=== PATIENT | male | born 1950 | race Caucasian/White ===

== ENCOUNTER 2018-06-02 04:30 | Inpatient (IN) | payer MEDICARE ==
[~2018-06-02] VITALS: Ht 170.2 cm; Wt 74.4 kg
[2018-06-02] MEDS ORDERED: MAG HYDROX/AL HYDROX/SIMETH 30 ML UDC PO PRN (05:00)
[2018-06-02] MEDS ORDERED: LORAZEPAM 0.5 MG TABLET PO PRN (05:00)
[2018-06-02] MEDS ORDERED: ZOLPIDEM TARTRATE 5 MG TABLET PO PRN (05:00)
[2018-06-02] MEDS ORDERED: MAGNESIUM HYDROXIDE 30 ML UDC PO PRN (05:00)
[2018-06-02] MEDS ORDERED: ACETAMINOPHEN 325 MG TABLET PO PRN (05:00)
--- NOTE | 2018-06-02 05:37 | NUR ---
ADMISSION NOTE: ADMITTED DIRECTLY FROM [facility] VIA GURNEY ACCOMPANIED BY 2 MALE PARAMEDICS. ADMITTED ON 5150 HOLD FOR GD, PATIENT UNABLE TO FORM PLAN FOR SELF CARE DUE TO MENTAL ILLNESS. HE WAS FOUND BY BYSTANDERS WALKING AROUND [employer] AFTER TAKING A BUS FROM [place], HE DOES NOT KNOW WHY HE IS IN THE HOSPITAL. STATED THAT HE IS FROM [place], LIVES WITH HIS 2 BROTHERS, TOOK ALL HIS MONEY FROM THE BANK AND TOOK THE BUS GOING TO [email or web address] PLACED PATIENT COMFORTABLY IN BED. NO ACUTE RESPIRATORY DISTRESS NOTED. 137/61, 98.1, 19, 58, 97% ON ROOM AIR. RESPIRATION EVEN, BREATHING PATTERN NON-LABORED. BELONGINGS WERE INVENTORIED AND CHECKED FOR CONTRABAND. PATIENT IS UNDER THE PSYCHIATRIC CARE OF DR. BILLY AND MEDICAL CARE BY DR. OSBORNE. PATIENT IS CALM, COMFORTABLE, COOPERATIVE, ALERT, ORIENTED X2.PATIENT HAS NO REGULAR MEDICATIONS. SKIN ASSESSMENT DONE, NOTED LEFT A ND RIGHT FOOT SWELLING AND REDNESS, DISCOLORATION RIGHT AND LEFT ARM, SCABS RIGHT KNEE. PHOTOS TAKEN. WOUND CONSULT ORDERED. MRSA SCREEN CONE. PATIENT IS A FULL CODE. BED LOCKED AND PLACED ON LOWEST POSITION. WILL CONTINUE TO MONITOR Q 15 MINS. TO MAINTAIN SAFETY. WILL NOTIFY BROTHER ABOUT ADMISSION TO THE UNIT.
[2018-06-02] MEDS ORDERED: CITA20TA16 (07:18)
[2018-06-02] MEDS ORDERED: GLIM2TAB2 PO (07:18)
[2018-06-02] MEDS ORDERED: PRAV20TA4 PO (07:18)
[2018-06-02] MEDS ORDERED: IRBE150T28 PO (07:18)
[2018-06-02] MEDS ORDERED: PALI117D (07:18)
[2018-06-02] MEDS ORDERED: AMLO5TAB7 PO (07:18)
[2018-06-02] MEDS ORDERED: ASEN5TAB7 SL (07:18)
[2018-06-02] MEDS ORDERED: METF-440 PO (07:18)
[2018-06-02] MEDS ORDERED: OXYB5TAB11 PO (07:18)
[2018-06-02] MEDS ORDERED: MIRT15TA7 (07:18)
[2018-06-02] MEDS ORDERED: PALI234D IM (07:32)
[2018-06-02] MEDS ORDERED: CLIN300C11 PO (07:55)
[2018-06-02 08:00] VITALS: BP 121/81
[2018-06-02] MEDS: AMLODIPINE BESYLATE 5 MG TABLET PO SCH (09:45)
[2018-06-02] MEDS ORDERED: IRBESARTAN (150MG) 150 MG TABLET PO SCH (10:00)
--- NOTE | 2018-06-02 12:06 | NUR ---
GPS/RN PT REFUSED BP MEDS (OFFERED X3) AND TO SIGN CONSENT FOR PSYCH MEDS.
[2018-06-02] MEDS: GLIMEPIRIDE 1 MG TABLET PO SCH (12:14)
[2018-06-02 16:00] VITALS: BP 129/65
[2018-06-02] MEDS: OXYBUTYNIN CHLORIDE 5 MG TABLET PO SCH (17:17)
[2018-06-02] MEDS: METFORMIN 500 MG TABLET PO SCH (17:17)
[2018-06-02] MEDS: ATORVASTATIN 10 MG TABLET PO SCH (18:00)
[2018-06-02 20:00] VITALS: BP 135/63
[2018-06-02] MEDS: MIRTAZAPINE 15 MG TABLET PO SCH (22:09)
[2018-06-03] MEDS ORDERED: VANCOMYCIN 1 GM in IV D5W 250 ML IV ONE (00:30)
--- NOTE | 2018-06-03 00:30 | NUR ---
GPS/RN-OBTAINED AN ORDER FROM JAQUELINE OSBORNE OF VANCOMYCIN IV FOR BLE CELLULITIS PHARMACY TO DOSE.STARTED PERIPHERAL LINE ON PTS.LEFT HAND,TOLERATED PROCEDURE WELL.VANCOMYCIN 1GM. IV ADMINISTERED ORDERED.
[2018-06-03] MEDS ORDERED: VANCOMYCIN 1 GM VIAL ONE (00:38)
[2018-06-03 08:00] VITALS: BP 145/71
[2018-06-03] MEDS: CITALOPRAM HYDROBROMIDE 20 MG TABLET PO SCH (09:08)
[2018-06-03] MEDS: METFORMIN 500 MG TABLET PO SCH ×2 (09:08→16:35)
[2018-06-03] MEDS: GLIMEPIRIDE 1 MG TABLET PO SCH (09:08)
[2018-06-03] MEDS: LOSARTAN POTASSIUM 25 MG TABLET PO SCH (09:08)
[2018-06-03] MEDS: OXYBUTYNIN CHLORIDE 5 MG TABLET PO SCH ×2 (09:31→16:37)
[2018-06-03] MEDS: AMLODIPINE BESYLATE 5 MG TABLET PO SCH (09:31)
[2018-06-03] MEDS: Z GUARD REMEDY 2 OZ OINT TP SCH (14:33)
[2018-06-03 16:00] VITALS: BP 112/57
[2018-06-03] MEDS: ATORVASTATIN 10 MG TABLET PO SCH (16:35)
[2018-06-03 19:41] VITALS: BP 112/65
[2018-06-03] MEDS: MIRTAZAPINE 15 MG TABLET PO SCH (21:35)
[2018-06-04 08:24] VITALS: BP 123/73
[2018-06-04] MEDS: GLIMEPIRIDE 1 MG TABLET PO SCH (09:01)
[2018-06-04] MEDS: AMLODIPINE BESYLATE 5 MG TABLET PO SCH (09:01)
[2018-06-04] MEDS: LOSARTAN POTASSIUM 25 MG TABLET PO SCH (09:01)
[2018-06-04] MEDS: METFORMIN 500 MG TABLET PO SCH ×2 (09:01→17:14)
[2018-06-04] MEDS: Z GUARD REMEDY 2 OZ OINT TP SCH (09:02)
[2018-06-04] MEDS: CITALOPRAM HYDROBROMIDE 20 MG TABLET PO SCH (09:02)
[2018-06-04] MEDS: OXYBUTYNIN CHLORIDE 5 MG TABLET PO SCH ×2 (09:02→17:15)
--- NOTE | 2018-06-04 10:09 | NUR ---
WOUND CARE CONSULT: PT PRESENTS WITH LEFT FOOT DISCOLORED AREAS AND WOUNDS, WELL LONG CURLING NAILS TO BILATERAL TOES, PRESENT ON ADMISSION. RASH NOTED TO PERINEUM, GROIN AREAS, PRESENT ON ADMISSION. RECOMMEND DPM CONSULT. RECOMMENDATIONS MADE FOR CARE OF RASH. DISCUSSED WITH NURSING STAFF. WILL SEE PRN. PANDA IN AGREEMENT WITH PLAN OF CARE. Addendum: 06/04/18 at 1011 by MARIA ALEJANDRA PABLO WNDNU Amended: Links added.
--- NOTE | 2018-06-04 13:05 | NUR ---
INITIAL DISCHARGE PLAN: Per pts sister Angeli [phone] pt will return home to [facility] [address] [address]. Pts sister Angeli will transport pt home when stable for discharge. SW will help form a safe and proper discharge in collaboration with .
[2018-06-04 16:00] VITALS: BP 121/69
[2018-06-04] MEDS: CLOTRIMAZOLE 1% 15 GM TUBE TP SCH (17:14)
[2018-06-04] MEDS: ATORVASTATIN 10 MG TABLET PO SCH (17:15)
[2018-06-04 19:32] VITALS: BP 124/68
[2018-06-04] MEDS: MIRTAZAPINE 15 MG TABLET PO SCH (21:06)
[2018-06-05 08:00] VITALS: BP 127/61
[2018-06-05] MEDS: LOSARTAN POTASSIUM 25 MG TABLET PO SCH (08:25)
[2018-06-05] MEDS: OXYBUTYNIN CHLORIDE 5 MG TABLET PO SCH ×2 (08:25→17:11)
[2018-06-05] MEDS: CITALOPRAM HYDROBROMIDE 20 MG TABLET PO SCH (08:25)
[2018-06-05] MEDS: METFORMIN 500 MG TABLET PO SCH ×2 (08:26→17:11)
[2018-06-05] MEDS: GLIMEPIRIDE 1 MG TABLET PO SCH (08:26)
[2018-06-05] MEDS: AMLODIPINE BESYLATE 5 MG TABLET PO SCH (08:26)
[2018-06-05] MEDS: Z GUARD REMEDY 2 OZ OINT TP SCH (08:28)
[2018-06-05] MEDS: CLOTRIMAZOLE 1% 15 GM TUBE TP SCH ×2 (08:28→17:11)
[2018-06-05 16:00] VITALS: BP 105/60
[2018-06-05] MEDS: ATORVASTATIN 10 MG TABLET PO SCH (17:11)
[2018-06-05 20:09] VITALS: BP 113/61
[2018-06-05] MEDS: MIRTAZAPINE 15 MG TABLET PO SCH (21:49)
[2018-06-06 08:00] VITALS: BP 147/61
[2018-06-06] MEDS: CITALOPRAM HYDROBROMIDE 20 MG TABLET PO SCH (08:33)
[2018-06-06] MEDS: OXYBUTYNIN CHLORIDE 5 MG TABLET PO SCH (08:33)
[2018-06-06] MEDS: LOSARTAN POTASSIUM 25 MG TABLET PO SCH (08:33)
[2018-06-06] MEDS: GLIMEPIRIDE 1 MG TABLET PO SCH (08:33)
[2018-06-06] MEDS: METFORMIN 500 MG TABLET PO SCH (08:33)
[2018-06-06 08:34] VITALS: BP 147/61
[2018-06-06] MEDS: AMLODIPINE BESYLATE 5 MG TABLET PO SCH (08:34)
[2018-06-06] MEDS: Z GUARD REMEDY 2 OZ OINT TP SCH (08:34)
[2018-06-06] MEDS: CLOTRIMAZOLE 1% 15 GM TUBE TP SCH (08:34)
--- NOTE | 2018-06-06 11:50 | NUR ---
GPS RN NOTE: PT DISCHARGE HOME PICKED BY HIS BROTHER VALERIA PENDLETON,IN STABLE CONDITION NO S/S DISTRESS NOTED, PT DENIES SI/HI, DENIES C/O PAIN,PT COMPLIANT WITH MEDICATIONS AND TX .PT AMBULATORY WITH ASSIST , A/O X3. EXIT CARE DONE ,PRINTED PT REFUSED TO SIGN. SKIN CHECKED PICTURE PLACED IN THE CHART. HOME HEALTH ORDERED DR RODRÍGUEZ AND DR GALLAGHER AWARE AND AGREE FOR DC. ALL BELONGINGS AND VALUABLES RETURNED TO PT.
--- NOTE | 2018-06-06 13:40 | NUR ---
DSICHARGE NOTE: Pt was discharged at 11:40am via private vehicle by pts sister Angeli [phone] who will be transporting pt home to [facility] [address] [address]. Pts mood was happy with congruent affect. Pt denied suicidal/homicidal ideations and denied visual/auditory hallucinations. Pt was referred to [facility] Address: [address] [place] [address] and was encouraged to contact them to schedule an appointment. Pt will also schedule a follow up appointment with System Auditor: [facility] Address: [address] [place] [address] . The multidisciplinary exitcare form was done, printed, signed, and given to the patient.
--- NOTE | 2018-06-06 16:21 | NUR ---
MAVIS faxed Home Health referral to Kelly client project coordinator at [facility] Address: [address] [address] .
== END 2018-06-06 11:40 | disposition home or self-care (01) | DRG 885 ==
LOC: GPS 04:30
PROVIDERS: ADMIT Psychiatry & Neurology Psychosomatic Medicine; ATTEND Psychiatry & Neurology Psychosomatic Medicine
DX: F20.9 Schizophrenia, unspecified (principal); F33.9 Major depressive disorder, recurrent, unspecified; E78.5 Hyperlipidemia, unspecified; E11.9 Type 2 diabetes mellitus without complications; I10 Essential (primary) hypertension; F41.9 Anxiety disorder, unspecified; G31.84 Mild cognitive impairment of uncertain or unknown etiology; R32 Unspecified urinary incontinence; E11.621 Type 2 diabetes mellitus with foot ulcer; L97.529 Non-pressure chronic ulcer of other part of left foot with unspecified severity; N40.1 Benign prostatic hyperplasia with lower urinary tract symptoms; Z91.14 Patient's other noncompliance with medication regimen; L60.3 Nail dystrophy
CPT/HCPCS: 87081-TC; J3370; J7060